=== PATIENT | female | born 1975 | race Caucasian/White ===

== ENCOUNTER 2017-02-28 21:17 | Emergency (ER) | payer BC ==
[2017-03-01] MEDS ORDERED: TRAMADOL HCL 50 MG TABLET PO ONE (01:16)
[2017-03-01] MEDS ORDERED: CYCLOBENZAPRINE HCL 10 MG TABLET PO ONE (03:06)
--- NOTE | 2017-03-01 03:10 | ER Document Report ---
ED Respiratory Problem - General Chief Complaint: Rib Pain Stated Complaint: COUGH Time Seen by Provider: 03/01/17 01:01 Notes: Patient is a 42-year-old female who comes emergency department for chief complaint of pain in her right lower ribs, she states she felt a sharp pain during a coughing episode earlier this morning, she reports pain with movement and a cough in the same area since that time. She denies increased shortness of breath, she denies current shortness of breath. She was recently diagnosed with pneumonia by a chest x-ray by her primary care, she is completing treatment for this including antibiotics and prednisone. She states she has not had any more fevers including today. Past medical history of diabetes, hypertension, denies COPD or asthma. TRAVEL OUTSIDE OF THE [place] IN LAST 30 DAYS: No - Related Data Allergies/Adverse Reactions: levofloxacin [From Levaquin] Adverse Reaction (Verified 02/28/17 21:39) morphine [Morphine] Adverse Reaction (Verified 02/28/17 21:39) Past Medical History - General Information source: Patient - Social History Smoking Status: Never Smoker Frequency of alcohol use: None Drug Abuse: None Lives with: Family Family History: Reviewed & Not Pertinent Patient has suicidal ideation: No Patient has homicidal ideation: No - Past Medical History Cardiac Medical History: Reports: Hx Hypercholesterolemia, Hx Hypertension Endocrine Medical History: Reports: Hx Diabetes Mellitus Type 2 - borderline Renal/ Medical History: Reports: Hx Kidney Stones. Denies: Hx Peritoneal Dialysis GI Medical History: Reports: Hx Gastroesophageal Reflux Disease Psychiatric Medical History: Reports: Hx Depression Past Surgical History: Reports: Hx Cholecystectomy, Hx Hysterectomy - Immunizations Hx Diphtheria, Pertussis, Tetanus Vaccination: Yes Review of Systems - Review of Systems Constitutional: No symptoms reported EENT: No symptoms reported Cardiovascular: See HPI Respiratory: See HPI Gastrointestinal: No symptoms reported Genitourinary: No symptoms reported Female Genitourinary: No symptoms reported Musculoskeletal: See HPI Skin: No symptoms reported Hematologic/Lymphatic: No symptoms reported Neurological/Psychological: No symptoms reported Physical Exam - Vital signs Vitals: Temp Pulse Resp BP Pulse Ox 97.8 F 98 32 H 144/79 H 98 02/28/17 21:34 02/28/17 21:34 02/28/17 21:34 02/28/17 21:34 02/28/17 21:34 Interpretation: Normal - General General appearance: Appears well, Alert In distress: None - patient has her hand over her right lower ribs, but she does not appear to be in distress - HEENT Head: Normocephalic, Atraumatic Eyes: Normal Conjunctiva: Normal Extraocular movements intact: Yes Eyelashes: Normal Pupils: PERRL Nasal: Normal Mouth/Lips: Normal Mucous membranes: Normal Pharynx: Normal Neck: Normal - Respiratory Respiratory status: No respiratory distress Chest status: Tender - Tenderness over the of right lower ribs, no bruising over the area, no abnormal erythema or other abnormality noted Breath sounds: Normal Chest palpation: Normal - Cardiovascular Rhythm: Regular Heart sounds: Normal auscultation Murmur: No - Abdominal Inspection: Normal Distension: No distension Bowel sounds: Normal Tenderness: Nontender. No: Tender, Guarding Organomegaly: No organomegaly - Back Back: Normal, Nontender - Extremities General upper extremity: Normal inspection, Nontender, Normal ROM, Normal strength General lower extremity: Normal inspection, Nontender, Normal ROM, Normal strength - Neurological Neuro grossly intact: Yes Cognition: Normal Orientation: AAOx4 Caitlin Coma Scale Eye Opening: Spontaneous [place] Coma Scale Verbal: Oriented Caitlin Coma Scale Motor: Obeys Commands Caitlin Coma Scale Total: 15 Speech: Normal Motor strength normal: LUE, RUE, LLE, RLE Sensory: Normal - Psychological Associated symptoms: Normal affect, Normal mood - Skin Skin Temperature: Warm Skin Moisture: Dry Skin Color: Normal Course - Re-evaluation Re-evalutation: Patient with point tenderness over the of right lower ribs, no bruising over the area, no abnormal erythema or other abnormality noted. Chest is otherwise unremarkable. Patient with no other complaints, symptom is much worse with coughing. Chest x-ray unremarkable, rib studies unremarkable. No hypoxia, no tachypnea on my exam, no evidence of pneumothorax, low suspicion of acute intrathoracic abnormality otherwise based on patient's presentation and symptoms. Suspect chest wall pain, possible cracked rib. Patient provided with medication Flexeril, patient is medicated for pneumonia and is taking prednisone, discussed primary care follow-up, discussed return precautions, patient states she is ready to leave, patient states understanding and agreement with plan. - Vital Signs Vital signs: Temp Pulse Resp BP Pulse Ox 97.8 F 81 18 131/67 H 98 02/28/17 21:34 03/01/17 01:34 03/01/17 01:34 03/01/17 01:34 03/01/17 01:34 Discharge - Discharge Clinical Impression: Rib pain on right side Condition: Stable Disposition: HOME, SELF-CARE Additional Instructions: Imaging of the lungs and ribs do not show any acute abnormalities. No fracture is seen, this is most likely musculoskeletal in nature without fracture. Take the Flexeril muscle relaxer as prescribed, continue your current medications, follow-up with your primary care provider. Return to emergency department for any concerning or worsening symptoms including difficulty breathing, severe pain, or any other concerning symptoms. Prescriptions: Cyclobenzaprine HCl [Flexeril 5 mg Tablet] 1 - 2 tab PO TID PRN #20 tablet PRN Reason: Referrals: NABILA CASE MD [Primary Care Provider] - Follow up as needed
[2017-03-01 03:53] VITALS: BP 131/67
== END 2017-03-01 03:20 | disposition home or self-care (01) ==
LOC: ER 21:17
DX: R07.81 Pleurodynia (principal); R05 Cough
CPT/HCPCS: 71020; 99283